=== PATIENT | female | born 1935 | race Caucasian/White ===

== ENCOUNTER 2017-08-25 04:01 | Inpatient (IN) | payer MEDICARE ==
[2017-08-25] MEDS ORDERED: NS 0.9% 1000 ML* 1,000 ML IV ONE (04:25)
--- NOTE | 2017-08-25 04:32 | ED ---
Nausea/Vomiting/Diarrhea HPI - HPI Summary HPI Summary: 81 yrs old female with PMHX of metastatic lung CA,CAD S/P Multiple PCI'S. last one was on June. Pt still on Chemotherapy. Pt brought to the ED by her daughter because of N/V, weakness and decrease PO intake. Pt had the symptoms for the last 2 days. No fever,no diarrhea,no abdominal pain. - History of Current Complaint Chief Complaint: EDNauseaVomitDiarrh Stated Complaint: N/V, generalized weaknerss. Time Seen by Provider: 08/25/17 04:10 Hx Obtained From: Patient, Family/Marker Hand ?: No Onset/Duration: Gradual Onset - 2 days ago. Timing: Constant Severity Initially: Moderate Severity Currently: Moderate Pain Intensity: 0 Pain Scale Used: 0-10 Numeric - zero. Nausea/Vomiting Presence: Nauseated Vomiting Frequency: Every 3-4 hours Vomiting Characteristics: Nonbilious Diarrhea Presence: No - Risk Factors Influenza Risk Factors: Age 65 y/o or Older - Lung CA on chemotherapy. - Allergies/Home Medications Allergies/Adverse Reactions: Allergies Allergy/AdvReac Type Severity Reaction Status Date / Time No Known Allergies Allergy Verified 08/19/17 13:58 Home Medications: Home Medications oxyCODONE SR TAB(*) [Oxycontin 10 mg (*)] 10 mg PO BID 08/25/17 [History Confirmed 08/25/17] oxyCODONE TAB* [Roxycodone TAB 5 mg*] 5 mg PO Q4H PRN 08/25/17 [History Confirmed 08/25/17] PMH/Surg Hx/FS Hx/Imm Hx Endocrine/Hematology History: Reports: Hx Anticoagulant Therapy, Hx Anemia Denies: Hx Blood Disorders, Hx Blood Transfusions, Hx Bone Marrow Disease, Hx Diabetes, Hx Systemic Lupus Erythematosus, Hx Sickle Cell Disease, Hx Thyroid Disease, Hx Unexplained Bleeding Cardiovascular History: Reports: Hx Coronary Artery Disease, Hx Hypercholesterolemia, Hx Hypertension, Other Cardiovascular Problems/Disorders - STENTS x6 Denies: Hx Aneurysm, Hx Angina, Hx Angioplasty, Hx Auto Implanted Cardiovert Defib, Hx Cardiac Arrest, Hx Cardiomegaly, Hx Congenital Heart Disease, Hx Congestive Heart Failure, Hx Deep Vein Thrombosis, Hx Embolism, Hx Hypotension, Hx Pacemaker/ICD, Hx Peripheral Vascular Disease, Hx Rheumatic Fever, Hx Syncope , Hx Valvular Heart Disease Respiratory History: Reports: Hx Lung Cancer - Diagnosed 05/2017 Denies: Hx Asthma, Hx Chronic Bronchitis, Hx Chronic Obstructive Pulmonary Disease (COPD), Hx Cystic Fibrosis, Hx Pleural Effusion, Hx Pneumonia, Hx Pulmonary Edema, Hx Pulmonary Embolism, Hx Seasonal Allergies, Hx Sleep Apnea GI History: Reports: Hx Diverticulosis - 1991, Hx Gastroesophageal Reflux Disease - 03/2017 Denies: Hx Cirrhosis, Hx Crohn's Disease, Hx Gall Bladder Disease, Hx Gastrointestinal Bleed, Hx Hiatal Hernia, Hx Irritable Bowel, Hx Jaundice, Hx Obstructive Bowel, Hx Ileostomy, Hx Pyloric Stenosis, Hx Ulcer, Other GI Disorders History: Reports: Hx Renal Disease - INTERSTITIAL NEPHRITIS Denies: Hx Acute Renal Failure, Hx Benign Prostatic Hyperplasia, Hx Chronic Renal Failure, Hx Dialysis, Hx Kidney Infection, Hx Kidney Stones, Other Problems/Disorders Musculoskeletal History: Reports: Hx Arthritis - BACK, Hx Back Problems - Arthritis, Hx Osteoporosis Denies: Hx Bursitis, Hx Congenital Bone Abnormalities, Hx Fibromyalgia, Hx Gout, Hx Orthopedic Injury, Hx Scoliosis, Hx Tendonitis Sensory History: Reports: Hx Cataracts, Hx Contacts or Glasses - GLASSES INST GIVEN, Hx Glaucoma, Hx Macular Degeneration, Other Sensory Impairments - EYE SURGERY Denies: Hx Eye Injury, Hx Eye Prosthesis, Hx Legally Blind, Hx Vision Problem , Hx Deafness, Hx Hearing Aid, Hx Hearing Problem Opthamlomology History: Reports: Hx Cataracts, Hx Contacts or Glasses - GLASSES INST GIVEN, Hx Glaucoma, Hx Macular Degeneration, Other Sensory Impairments - EYE SURGERY Denies: Hx Eye Injury, Hx Eye Prosthesis, Hx Legally Blind, Hx Vision Problem Neurological History: Denies: Hx Dementia, Hx Developmental Delay, Hx Headaches, Hx Migraine, Hx Nerve Disease, Hx Seizures, Hx Spinal Cord Injury, Hx Transient Ischemic Attacks (TIA), Other Neuro Impairments/Disorders Psychiatric History: Reports: Hx Anxiety Denies: Hx Attention Deficit Hyperactivity Disorder, Hx Eating Disorder, Hx Depression, Hx Panic Disorder, Hx Post Traumatic Stress Disorder, Hx Inpatient Treatment, Hx Community Mental Health Tx, Hx Schizophrenia, Hx Bipolar Disorder , Hx Suicide Attempt, Hx of Violent Episodes Against Others, Hx Substance Abuse , Other Psychiatric Issues/Disorders - Cancer History Cancer Type, Location and Year: SHORT CELL LUNG CARCINOMA Hx Chemotherapy: No Hx Radiation Therapy: No Hx Palliative Cancer Treatment: No - Surgical History Surgery Procedure, Year, and Place: 1992 D/C MAXIMUS. 2002 CARPAL TUNNEL R [facility]. 2012 HYSTERECTOMY COM GEN. 2006 CATARACT [facility] & [facility] 2002 - TOTAL 6 CARDIAC STENTS - BILLY. Lt eye drain place due to pressure(PREV CLEARED). PORT FOR CHEMO Hx Anesthesia Reactions: No - Immunization History Date of Tetanus Vaccine: 2010 Date of Influenza Vaccine: 06/2013 Infectious Disease History: No Infectious Disease History: Reports: Hx Shingles - 2002 Denies: Hx Clostridium Difficile, Hx Hepatitis, Hx Human Immunodeficiency Virus (HIV), Hx Tuberculosis, Traveled Outside the [place] in Last 30 Days - Family History Known Family History: Positive: Cardiac Disease - Social History Alcohol Use: None Substance Use Type: Reports: None Smoking Status (MU): Former Smoker Type: Cigarettes Have You Smoked in the Last Year: No Review of Systems Positive: Fatigue. Negative: Fever, Chills Eyes: Negative Negative: Photophobia, Blurred Vision ENT: Negative Negative: Epistaxis, Dental Pain, Sore Throat Cardiovascular: Negative Negative: Palpitations, Chest Pain Respiratory: Negative Negative: Shortness Of Breath, Cough Positive: Vomiting, Nausea. Negative: Abdominal Pain, Diarrhea Genitourinary: Negative Positive: no symptoms reported Skin: Negative Negative: Rash, Bruising Neurological: Negative Negative: Headache, Weakness, Paresthesia, Numbness All Other Systems Reviewed And Are Negative: Yes Physical Exam - Summary Physical Exam Summary: Elderly fragile ill looking female. Triage Information Reviewed: Yes Vital Signs On Initial Exam: Initial Vitals Temp Pulse Resp BP Pulse Ox 36.9 C 74 20 131/69 96 08/25/17 04:16 08/25/17 04:16 08/25/17 04:16 08/25/17 04:16 08/25/17 04:16 Vital Signs Reviewed: Yes Appearance: Positive: Ill-Appearing Skin: Positive: Warm, Dry Head/Face: Positive: Normal Head/Face Inspection Eyes: Positive: Normal, EOMI, MASHA ENT: Positive: Normal ENT inspection, Hearing grossly normal, Pharynx normal Neck: Positive: Supple, Nontender, No Lymphadenopathy Respiratory/Lung Sounds: Positive: Decreased Breath Sounds. Negative: Rales, Rhonchi, Subcutaneous Emphysema Cardiovascular: Positive: RRR, Pulses are Symmetrical in both Upper and Lower Extremities. Negative: Murmur, Rub Abdomen Description: Positive: Nontender, No Organomegaly, Soft. Negative: CVA Tenderness (L), Distended, Guarding Bowel Sounds: Positive: Present Musculoskeletal: Positive: Normal Neurological: Positive: Normal Diagnostics - Vital Signs Vital Signs Temp Pulse Resp BP Pulse Ox 08/25/17 04:16 36.9 C 74 20 131/69 96 - Laboratory Result Diagrams: 08/25/17 04:48 08/25/17 04:48 Lab Statement: Any lab studies that have been ordered have been reviewed, and results considered in the medical decision making process. Naus/Vom/Diarrhea Course/Dx - Course Course Of Treatment: Time:0549. I reviewed lab results with pt and her daughter. Pt was able to drink water and keep it down in the ED. Pt complains of pain, Treated with Zofran and Morphine. Case discussed with [facility] hospitalist. Dr Koroma. Pt will be admitted to her service. - Differential Dx/Diagnosis Provider Diagnoses: Generalized weakness. Dehydration. Nausea and vomiting. Discharge - Discharge Plan Condition: Fair Disposition: ADMITTED TO [facility] Referrals: Lamar Markham MD [Primary Care Provider] -
[2017-08-25 04:59] LABS: Hematocrit 26 % (35-47); Hemoglobin 8.6 g/dl (12.0-16.0); Mean Corpuscular HGB Conc 34 g/dl (31-36); Mean Corpuscular Hemoglobin 32 pg (27-31); Mean Corpuscular Volume 95 fL (80-97); Mean Platelet Volume 9 um3 (7.4-10.4); Red Cell Distribution Width 16 % (10.5-15); White Blood Count 5.3 10^3/ul (3.5-10.8)
[2017-08-25 05:13] LABS: Albumin 3.4 g/dL (3.2-5.2); BUN/Creatinine Ratio 22.2 (8-20); Calcium 8.9 mg/dL (8.6-10.3); EGFR Non-African American 30.3 (>60); Globulin 2.9 g/dL (2-4); Total Bilirubin 0.4 mg/dL (0.2-1.0); Total Protein 6.3 g/dL (6.4-8.9)
[2017-08-25] MEDS ORDERED: Ondansetron INJ* 2 MG/ML VIAL IV ONE (05:39)
[2017-08-25] MEDS ORDERED: Morphine INJ* 4 MG/ML 1 ML CARPUJECT IV ONE (05:44)
[2017-08-25 09:07] LABS: Urine Bilirubin Negative (Negative); Urine Glucose Negative (Negative); Urine Nitrite Negative (Negative)
[2017-08-25] MEDS ORDERED: Loperamide CAP* 2 MG PO PRN (09:36)
[2017-08-25] MEDS ORDERED: Nitroglycerin TAB 0.4 MG* 0.4 MG TAB SL PRN (09:40)
[2017-08-25] MEDS ORDERED: Ondansetron INJ* 2 MG/ML VIAL IV PRN (09:48)
[2017-08-25] MEDS: oxyCODONE TAB* 5 MG TAB PO PRN (10:13)
[2017-08-25] MEDS: Dronabinol CAP* 2.5 MG PO SCH ×2 (12:52→16:19)
[2017-08-25] MEDS ORDERED: Lidocaine 2.5%/Prilocain 2.5%* 5 GM TUBE TOPICAL SCH (13:00)
[2017-08-25] MEDS: oxyCODONE SR TAB(*) 10 MG TAB.SR PO SCH ×2 (13:38→20:45)
[2017-08-25] MEDS: Heparin VIAL(*) 5000 UNITS/ML VIAL (FIVE THOUSAND) SUBCUT SCH ×2 (13:38→20:45)
[2017-08-25] MEDS: NS 0.9% 1000 ML* 1,000 ML IV SCH (14:06)
[2017-08-25] MEDS: Morphine INJ* 4 MG/ML 1 ML CARPUJECT IV PRN (16:19)
[2017-08-25] MEDS: Atorvastatin* 80 MG TAB PO SCH (17:52)
[2017-08-25] MEDS ORDERED: Sertraline* 50 MG TAB PO SCH (18:00)
[2017-08-25] MEDS: Metoprolol Tartrate TAB* 50 mg PO SCH (20:45)
[2017-08-25] MEDS: Gabapentin CAP(*) 100 MG PO SCH (20:45)
[2017-08-25] MEDS: Ticagrelor* 90 MG TAB PO SCH (20:45)
[2017-08-25] MEDS: PTO:Dorzolamide 2% OPTH (NF) 10 ML BTL BOTH EYES SCH (20:46)
[2017-08-25] MEDS: PTO:Brimonidine P 0.1%(NF) 1 DROP BTL BOTH EYES SCH (20:46)
[2017-08-26] MEDS: NS 0.9% 1000 ML* 1,000 ML IV SCH ×2 (02:37→15:27)
[2017-08-26] MEDS: Dronabinol CAP* 2.5 MG PO SCH ×3 (05:48→16:52)
[2017-08-26] MEDS: Heparin VIAL(*) 5000 UNITS/ML VIAL (FIVE THOUSAND) SUBCUT SCH ×3 (05:48→21:30)
[2017-08-26] MEDS: oxyCODONE SR TAB(*) 10 MG TAB.SR PO SCH ×3 (05:48→21:29)
[2017-08-26 06:07] LABS: Hematocrit 26 % (35-47); Hemoglobin 8.5 g/dl (12.0-16.0); Mean Corpuscular HGB Conc 33 g/dl (31-36); Mean Corpuscular Hemoglobin 32 pg (27-31); Mean Corpuscular Volume 96 fL (80-97); Mean Platelet Volume 9 um3 (7.4-10.4); Red Blood Count 2.69 10^6/ul (4.0-5.4); Red Cell Distribution Width 16 % (10.5-15); White Blood Count 7.7 10^3/ul (3.5-10.8)
[2017-08-26 06:08] LABS: Add Diff/Slide Review? Slide Review Added; Comments Flag Yes
[2017-08-26 06:34] LABS: Albumin 3.4 g/dL (3.2-5.2); BUN/Creatinine Ratio 15.7 (8-20); Calcium 8.8 mg/dL (8.6-10.3); EGFR African American 46.2 (>60); EGFR Non-African American 35.9 (>60); Globulin 2.6 g/dL (2-4); Potassium 4.2 mmol/L (3.5-5.0); Total Bilirubin 0.3 mg/dL (0.2-1.0)
[2017-08-26] MEDS: oxyCODONE TAB* 5 MG TAB PO PRN (06:36)
[2017-08-26] MEDS: PTO:Dorzolamide 2% OPTH (NF) 10 ML BTL BOTH EYES SCH ×2 (07:35→21:32)
[2017-08-26] MEDS ORDERED: Latanoprost 0.005%* 2.5 ml BTL LEFT EYE SCH (09:00)
[2017-08-26] MEDS: Gabapentin CAP(*) 100 MG PO SCH ×2 (09:30→21:27)
[2017-08-26] MEDS: Ticagrelor* 90 MG TAB PO SCH ×2 (09:30→21:29)
[2017-08-26] MEDS: Metoprolol Tartrate TAB* 50 mg PO SCH ×2 (09:30→21:28)
[2017-08-26] MEDS: PTO:Brimonidine P 0.1%(NF) 1 DROP BTL BOTH EYES SCH ×2 (09:31→21:32)
[2017-08-26] MEDS: Aspirin Low Dose CHEW TAB* 81 MG PO SCH (09:31)
--- NOTE | 2017-08-26 09:34 | PN ---
Progress Note - Progress Note Date of Service: 08/26/17 SOAP: Subjective: []Continues to do poorly. Weak, not eating well. Vision continues to worsen. Diarrhea is improved. Aspirin (Aspirin Low Dose Tab*) 81 mg PO DAILY [facility] Atorvastatin Calcium (Lipitor*) 80 mg PO 1700 [facility] Last Admin: 08/25/17 17:52 Dose: 80 mg Brimonidine Tartrate (Alphagan P 0.1% (Nf)) 1 drop BOTH EYES BID [facility] Last Admin: 08/25/17 20:46 Dose: 1 drop Dorzolamide HCl (Trusopt 2% Opth (Nf)) 1 drop BOTH EYES BID [facility] PRN Reason: Protocol Last Admin: 08/26/17 07:35 Dose: 1 drop Dronabinol (Marinol Cap*) 2.5 mg PO AC [facility] Last Admin: 08/26/17 05:48 Dose: 2.5 mg Gabapentin (Neurontin Cap(*)) 100 mg PO BID [facility] Last Admin: 08/25/17 20:45 Dose: 100 mg Heparin Sodium (Porcine) (Heparin Flush Port (Ivad)) 5 ml FLUSH DAILY [facility] PRN Reason: Protocol Last Admin: 08/26/17 07:28 Dose: Not Given Heparin Sodium (Porcine) (Heparin Vial(*)) 5,000 units SUBCUT Q8HR [facility] Last Admin: 08/26/17 05:48 Dose: 5,000 units Sodium Chloride (Ns 0.9% 1000 Ml*) 1,000 mls @ 75 mls/hr IV PER RATE [facility] Last Admin: 08/26/17 02:37 Dose: 75 mls/hr Latanoprost (Xalatan 0.005%*) 1 drop LEFT EYE DAILY [facility] PRN Reason: Protocol Last Admin: 08/26/17 07:34 Dose: Not Given Loperamide HCl (Imodium Cap*) 2 mg PO .SEE DIRECTIONS PRN PRN Reason: DIARRHEA Metoprolol Tartrate (Lopressor Tab*) 50 mg PO BID [facility] Last Admin: 08/25/17 20:45 Dose: 50 mg Morphine Sulfate (Morphine Inj (Syringe)*) 4 mg IV Q4H PRN PRN Reason: Pain, severe Last Admin: 08/25/17 16:19 Dose: 4 mg Nitroglycerin (Nitroglycerin Tab 0.4 Mg*) 0.4 mg SL Q5M PRN PRN Reason: ANGINA Ondansetron HCl (Zofran Inj*) 4 mg IV Q4H PRN PRN Reason: NAUSEA/VOMITING Oxycodone HCl (Oxycontin(*)) 10 mg PO Q8HR [facility] Last Admin: 08/26/17 05:48 Dose: 10 mg Oxycodone HCl (Roxycodone Tab*) 5 mg PO Q4H PRN PRN Reason: PAIN Last Admin: 08/26/17 06:36 Dose: 5 mg Sertraline HCl (Zoloft*) 50 mg PO QPM [facility] Last Admin: 08/25/17 17:52 Dose: 50 mg Ticagrelor (Brilinta*) 90 mg PO BID [facility] Last Admin: 08/25/17 20:45 Dose: 90 mg Objective: [] Vital Signs Temp Pulse Resp BP Pulse Ox 98.0 F 67 18 147/67 97 08/26/17 03:24 08/26/17 03:24 08/26/17 09:23 08/26/17 03:24 08/26/17 03:24 HEENT: Mucosa moist, no thrush. No JVD CTA RRR S1S2 Neuro - oriented and conversing, vision very poor and not orienting visually. Assessment: []81 year old on second line chemotherapy for small cell lung cancer after non response to Carboplatin and Etoposide first line. She is not tolerating therapy well with progressive weakness, loss of vision through progression of macular degeneration. Plan: []1. Weakness. PT evaluation today and will tranfuse 1 U PRBC. Encourage eating. 2. Insomnia, Ambien 10 mg po qhs prn 3. Discussed cost of therapy and poor QOL. Chemotherpy is more harm then good at this time. Discussed hospice on discharge with goal of patient staying home. 4. Loss of vision. Follow up ophthalmology on discharge, question of progressive macular degeneration or alternative cause.
[2017-08-26] MEDS ORDERED: Zolpidem TAB* 10 MG PO PRN (09:36)
[2017-08-26] MEDS ORDERED: Docusate CAP* 100 MG PO PRN (10:52)
[2017-08-26] MEDS ORDERED: Senna TAB PO PRN (10:52)
[2017-08-26] MEDS: Lidocaine PATCH 5%* 1 PATCH TRANSDERM SCH (11:50)
[2017-08-26] MEDS: Atorvastatin* 80 MG TAB PO SCH (16:52)
[2017-08-26] MEDS: Sertraline* 100 MG TAB PO SCH (16:52)
--- NOTE | 2017-08-26 19:49 | CONS ---
CC: Lamar Markham MD * PALLIATIVE CARE CONSULTATION REPORT: DATE OF CONSULT: 08/26/17 PRIMARY CARE PHYSICIAN: Lamar Markham MD REFERRING PROVIDER FOR CONSULT: Azucena Grace NP HOSPITAL COURSE: This is an 81-year-old female with a past medical history of small cell lung cancer, stage IV, who presented to the emergency room on , for nausea, vomiting, weakness, and decreased p.o. intake. The patient was admitted by the oncology service. She was getting chemotherapy earlier this month and then she began having vision changes with double vision and decreased vision. She had an MRI that was negative but she continued with progressive weakness, decreased appetite, not doing well. She came in with nausea and as mentioned severe diarrhea. The patient was admitted to the hospital for IV fluids and pain control and symptom control. Oncology spoke with the patient and the daughter at length regarding discontinuing chemotherapy and referring for hospice, as it seems that chemotherapy has become more detrimental than it is beneficial for her at this point. I spoke with the patient and one of the daughters who agree that treatment is no longer an option and that she is having issues with her vision and nausea. Her diarrhea has subsided and now she feels she is constipated. She does have a lot of anxiety, as she used to be very active and now she only can sit around. She has been on the same Zoloft dose for several years but the patient and her family feel that she could benefit from a higher dose. She still has lot of weakness in her knees and a lot of back pain, but she is hesitant to increase her opioid regimen for concern of oversedation. The patient lives in [facility]. She has 4 daughters who live within walking distance of her, who are in to visit with her daily. They are planning to provide 24-hour care between them to make sure that she can be home with hospice involvement. Otherwise, remaining review of systems is negative. PAST MEDICAL HISTORY: 1. Stage IV small cell lung carcinoma, PET scan showed multiple bone lesions in spine, sternum, ribs, multiple liver lesions, and several lung lesions, and a large mediastinal node. She is status post chemotherapy. 2. History of compression fracture of T12. 3. Arthritis. 4. CAD, status post PCI. 5. CKD, followed by Dr. Esqueda. 6. Depression. 7. Hyperlipidemia. 8. Macular degeneration. 9. Osteoarthritis. 10. Peripheral neuropathy. PAST SURGICAL HISTORY: Carpal tunnel surgery, cataract removal, glaucoma, and hysterectomy. INPATIENT MEDICATIONS: 1. Aspirin 81 mg p.o. daily. 2. Atorvastatin 80 mg daily. 3. Brimonidine 1 drop both eyes b.i.d. 4. Dorzolamide 1 drop both eyes b.i.d. 5. Marinol 2.5 mg p.o. a.c. 6. Gabapentin 100 mg p.o. b.i.d. 7. Heparin 5000 units subcu t.i.d. 8. Latanoprost 0.005% 1 drop to left eye daily. 9. Loperamide as directed. 10. Metoprolol tartrate 50 mg p.o. b.i.d. 11. Morphine 4 mg IV q.4 hours as needed. 12. Nitro 0.4 mg sublingual as needed. 13. Normal saline 75 cc an hour. 14. Zofran 4 mg IV q.4 hours as needed. 15. Oxycodone SR 10 mg p.o. q.8 hours. 16. Oxycodone 5 mg q.4 hours as needed. 17. Sertraline 50 mg p.o. daily. 18. Brilinta 90 mg p.o. b.i.d. 19. Ambien 10 mg at bedtime. ALLERGIES: No known drug allergies. FAMILY HISTORY: Reviewed and noncontributory. SOCIAL HISTORY: As mentioned, lives alone on [address]. Her 4 daughters all live within close proximity to her and will provide 24-hour care for her. She was ambulating independently with a cane, but now she will be going home with a walker. She quit smoking 50 years ago, at that point she was smoking a pack per day for 15 years. No alcohol or illicit drug use. Code status is DNR/ DNI. Healthcare proxies are her daughters. REVIEW OF SYSTEMS: A 14-point review of systems as mentioned in HPI, otherwise negative. PHYSICAL EXAM: Vitals: Temp 98.1, pulse rate 67, respiratory rate 15, oxygen saturation 95% on room air, blood pressure 128/70. General: In no acute distress, resting comfortably with her daughter at the bedside. HEENT: The patient with alopecia, pale appearing. Pupils equal and reactive. Oropharynx: Mucous membranes are moist. Neck: Supple. No adenopathy. Respiratory: Diminished breath sounds. No wheezing, rhonchi, or rales. Cardiac: Regular rate and rhythm. No murmurs, rubs, or gallops. Abdomen: Soft, nontender, nondistended. Extremities: No clubbing, cyanosis, or edema. +1 DPs. Neurologic : Alert and oriented x3 with no focal neurologic deficits. LABORATORY DATA: White count 7.7, hemoglobin 8.5, hematocrit 26. Sodium 136, potassium 4.2, chloride 108, bicarb 21, BUN 22, creatinine 1.4. ASSESSMENT AND PLAN: This is an 81-year-old female with past medical history of stage IV small cell lung cancer, who has not been tolerating chemotherapy and has decided to go home with hospice and being cared by her 4 daughters. I did discuss with her increasing her Zoloft dose, which they are agreeable to. We will increase it to 100 mg. We will also start the bowel regimen as she states she has been constipated for the past 2 days since the diarrhea stopped. We are also going to try Lidoderm patch as she does not want to increase any opioid medications. We will have our social work nurse come and talk to her regarding the hospice services within [facility]. Thank you for this consultation. TIME SPENT: Greater than 60 minutes spent doing the consultation, more than half the time spent in direct patient contact. [id number]/[facility] #: [id number] MTDD
[2017-08-26] MEDS ORDERED: Lidocaine Patch REMOVE* 1 NOTE MISC SCH (21:00)
[2017-08-26] MEDS: Latanoprost 0.005%* 2.5 ml BTL LEFT EYE SCH (21:31)
[2017-08-27] MEDS: NS 0.9% 1000 ML* 1,000 ML IV SCH (05:16)
[2017-08-27] MEDS: oxyCODONE SR TAB(*) 10 MG TAB.SR PO SCH ×3 (06:15→20:38)
[2017-08-27] MEDS: Heparin VIAL(*) 5000 UNITS/ML VIAL (FIVE THOUSAND) SUBCUT SCH ×3 (06:15→20:40)
[2017-08-27 06:26] LABS: Hematocrit 27 % (35-47); Hemoglobin 8.8 g/dl (12.0-16.0); Mean Corpuscular HGB Conc 33 g/dl (31-36); Mean Corpuscular Hemoglobin 31 pg (27-31); Mean Corpuscular Volume 94 fL (80-97); Mean Platelet Volume 8 um3 (7.4-10.4); Red Blood Count 2.84 10^6/ul (4.0-5.4); Red Cell Distribution Width 17 % (10.5-15); White Blood Count 7.3 10^3/ul (3.5-10.8)
[2017-08-27 06:33] LABS: Comments Flag Yes
[2017-08-27 06:34] LABS: Add Diff/Slide Review? Slide Review Added
[2017-08-27 06:41] LABS: Albumin 3.1 g/dL (3.2-5.2); BUN/Creatinine Ratio 14.8 (8-20); Calcium 8.4 mg/dL (8.6-10.3); EGFR Non-African American 45.1 (>60); Globulin 2.6 g/dL (2-4); Magnesium 1.4 mg/dL (1.9-2.7); Total Bilirubin 0.3 mg/dL (0.2-1.0); Total Protein 5.7 g/dL (6.4-8.9)
[2017-08-27] MEDS: Dronabinol CAP* 2.5 MG PO SCH ×3 (09:21→17:36)
[2017-08-27] MEDS: Ticagrelor* 90 MG TAB PO SCH (09:23)
[2017-08-27] MEDS: Gabapentin CAP(*) 100 MG PO SCH ×2 (09:23→20:39)
[2017-08-27] MEDS: Aspirin Low Dose CHEW TAB* 81 MG PO SCH (09:24)
[2017-08-27] MEDS: Metoprolol Tartrate TAB* 50 mg PO SCH ×2 (09:25→20:39)
[2017-08-27] MEDS: Morphine INJ* 4 MG/ML 1 ML CARPUJECT IV PRN (09:38)
[2017-08-27] MEDS: Lidocaine PATCH 5%* 1 PATCH TRANSDERM SCH (09:39)
[2017-08-27] MEDS ORDERED: Morphine INJ* 4 MG/ML 1 ML CARPUJECT IV PRN (10:08)
--- NOTE | 2017-08-27 10:16 | PN ---
Progress Note - Progress Note Date of Service: 08/27/17 SOAP: Subjective: []Did well yesterday and was active. BM overnight. This am increaed pain and used PRN medication. Had some confusion overnight. No fevers. Aspirin (Aspirin Low Dose Tab*) 81 mg PO DAILY [facility] Last Admin: 08/27/17 09:24 Dose: 81 mg Brimonidine Tartrate (Alphagan P 0.1% (Nf)) 1 drop BOTH EYES BID [facility] Last Admin: 08/26/17 21:32 Dose: 1 drop Docusate Sodium (Colace Cap*) 100 mg PO BID PRN PRN Reason: CONSTIPATION Last Admin: 08/26/17 21:28 Dose: 100 mg Dorzolamide HCl (Trusopt 2% Opth (Nf)) 1 drop BOTH EYES BID [facility] PRN Reason: Protocol Last Admin: 08/26/17 21:32 Dose: 1 drop Dronabinol (Marinol Cap*) 2.5 mg PO AC [facility] Last Admin: 08/27/17 09:21 Dose: 2.5 mg Gabapentin (Neurontin Cap(*)) 100 mg PO BID [facility] Last Admin: 08/27/17 09:23 Dose: 100 mg Heparin Sodium (Porcine) (Heparin Flush Port (Ivad)) 5 ml FLUSH DAILY [facility] PRN Reason: Protocol Last Admin: 08/27/17 09:24 Dose: Not Given Heparin Sodium (Porcine) (Heparin Vial(*)) 5,000 units SUBCUT Q8HR [facility] Last Admin: 08/27/17 06:15 Dose: 5,000 units Latanoprost (Xalatan 0.005%*) 1 drop LEFT EYE BEDTIME [facility] PRN Reason: Protocol Last Admin: 08/26/17 21:31 Dose: 1 drop Metoprolol Tartrate (Lopressor Tab*) 50 mg PO BID [facility] Last Admin: 08/27/17 09:25 Dose: 50 mg Morphine Sulfate (Morphine Inj (Syringe)*) 4 mg IV Q4H PRN PRN Reason: Pain, severe Nitroglycerin (Nitroglycerin Tab 0.4 Mg*) 0.4 mg SL Q5M PRN PRN Reason: ANGINA Ondansetron HCl (Zofran Inj*) 4 mg IV Q4H PRN PRN Reason: NAUSEA/VOMITING Last Admin: 08/27/17 09:38 Dose: 4 mg Oxycodone HCl (Oxycontin(*)) 10 mg PO Q8HR [facility] Last Admin: 08/27/17 06:15 Dose: 10 mg Oxycodone HCl (Roxycodone Tab*) 5 mg PO Q4H PRN PRN Reason: PAIN Last Admin: 08/26/17 06:36 Dose: 5 mg Senna (Senokot Tab*) 1 tab PO BEDTIME PRN PRN Reason: CONSTIPATION Last Admin: 08/26/17 21:30 Dose: 1 tab Sertraline HCl (Zoloft*) 100 mg PO QPM [facility] Last Admin: 08/26/17 16:52 Dose: 100 mg Zolpidem Tartrate (Ambien Tab*) 10 mg PO BEDTIME PRN PRN Reason: INSOMNIA Last Admin: 08/26/17 21:29 Dose: 10 mg Objective: [] Vital Signs Temp Pulse Resp BP Pulse Ox 98.1 F 68 20 146/59 95 08/27/17 03:25 08/27/17 03:25 08/27/17 09:38 08/27/17 03:25 08/27/17 03:25 HEENT: Mucosa moist, no thrush. No JVD CTA RRR S1S2 Neuro - More fatigued, was able to answer questions, oriented to place. vision very poor and not orienting visually. Assessment: []81 year old on second line chemotherapy for small cell lung cancer after non response to Carboplatin and Etoposide first line. She is not tolerating therapy well with progressive weakness, loss of vision through progression of macular degeneration. [place] [facility] [place], daughters will be primary care givers. Plan: []1. Weakness. PT and encurage activit. 2. Pain. Will continue current Oxycodone for now and follow. She has not wanted to increase long acting pain medication. 3. Discussed palliative care with family. Will work on psychosocial support on Tuesday. D/C early next week 4. Simplification of medication, stop cardiac medications. 5. Lidocaine patch did not work, will d/c
[2017-08-27] MEDS: PTO:Brimonidine P 0.1%(NF) 1 DROP BTL BOTH EYES SCH ×2 (13:14→20:40)
[2017-08-27] MEDS: PTO:Dorzolamide 2% OPTH (NF) 10 ML BTL BOTH EYES SCH ×2 (13:14→20:38)
[2017-08-27] MEDS ORDERED: Morphine INJ* 2 MG/ML 1 ML SYRINGE (TWO MG - NEW SYRINGE VERSION) IV PRN (17:01)
[2017-08-27] MEDS: Sertraline* 100 MG TAB PO SCH (17:36)
[2017-08-27] MEDS: Latanoprost 0.005%* 2.5 ml BTL LEFT EYE SCH (20:36)
[2017-08-28] MEDS: Heparin VIAL(*) 5000 UNITS/ML VIAL (FIVE THOUSAND) SUBCUT SCH ×3 (05:42→21:35)
[2017-08-28] MEDS: oxyCODONE SR TAB(*) 10 MG TAB.SR PO SCH ×3 (05:42→21:30)
[2017-08-28] MEDS: Gabapentin CAP(*) 100 MG PO SCH ×2 (09:21→21:31)
[2017-08-28] MEDS: Metoprolol Tartrate TAB* 50 mg PO SCH ×2 (09:22→21:34)
[2017-08-28] MEDS: Aspirin Low Dose CHEW TAB* 81 MG PO SCH (09:22)
[2017-08-28] MEDS: Dronabinol CAP* 2.5 MG PO SCH ×3 (09:22→18:02)
[2017-08-28] MEDS: oxyCODONE TAB* 5 MG TAB PO PRN (09:23)
[2017-08-28] MEDS: PTO:Dorzolamide 2% OPTH (NF) 10 ML BTL BOTH EYES SCH ×2 (09:24→21:27)
[2017-08-28] MEDS: PTO:Brimonidine P 0.1%(NF) 1 DROP BTL BOTH EYES SCH ×2 (09:24→21:29)
[2017-08-28] MEDS ORDERED: Loperamide CAP* 2 MG PO PRN (10:11)
--- NOTE | 2017-08-28 17:47 | PN ---
Subjective Date of Service: 08/28/17 Interval History: . rounded on patient earlier today for oncology team patient requested imodium (ordered) pain generally well controlled. daughter present. Family History: Unchanged from Admission Social History: Unchanged from Admission Past Medical History: Unchanged from Admission Objective Active Medications: . Aspirin (Aspirin Low Dose Tab*) 81 mg PO DAILY [facility] Last Admin: 08/28/17 09:22 Dose: 81 mg Brimonidine Tartrate (Alphagan P 0.1% (Nf)) 1 drop BOTH EYES BID [facility] Last Admin: 08/28/17 09:24 Dose: 1 drop Docusate Sodium (Colace Cap*) 100 mg PO BID PRN PRN Reason: CONSTIPATION Last Admin: 08/26/17 21:28 Dose: 100 mg Dorzolamide HCl (Trusopt 2% Opth (Nf)) 1 drop BOTH EYES BID [facility] PRN Reason: Protocol Last Admin: 08/28/17 09:24 Dose: 1 drop Dronabinol (Marinol Cap*) 2.5 mg PO AC [facility] Last Admin: 08/28/17 14:05 Dose: 2.5 mg Gabapentin (Neurontin Cap(*)) 100 mg PO BID [facility] Last Admin: 08/28/17 09:21 Dose: 100 mg Heparin Sodium (Porcine) (Heparin Flush Port (Ivad)) 5 ml FLUSH DAILY [facility] PRN Reason: Protocol Last Admin: 08/28/17 09:18 Dose: 5 ml Heparin Sodium (Porcine) (Heparin Vial(*)) 5,000 units SUBCUT Q8HR [facility] Last Admin: 08/28/17 14:05 Dose: 5,000 units Latanoprost (Xalatan 0.005%*) 1 drop LEFT EYE BEDTIME [facility] PRN Reason: Protocol Last Admin: 08/27/17 20:36 Dose: 1 drop Loperamide HCl (Imodium Cap*) 2 mg PO .SEE DIRECTIONS PRN PRN Reason: DIARRHEA Metoprolol Tartrate (Lopressor Tab*) 50 mg PO BID [facility] Last Admin: 08/28/17 09:22 Dose: 50 mg Morphine Sulfate (Morphine Inj (Syringe)*) 2 mg IV Q2H PRN PRN Reason: PAIN Nitroglycerin (Nitroglycerin Tab 0.4 Mg*) 0.4 mg SL Q5M PRN PRN Reason: ANGINA Ondansetron HCl (Zofran Inj*) 4 mg IV Q4H PRN PRN Reason: NAUSEA/VOMITING Last Admin: 08/27/17 09:38 Dose: 4 mg Oxycodone HCl (Oxycontin(*)) 10 mg PO Q8HR [facility] Last Admin: 08/28/17 14:05 Dose: 10 mg Oxycodone HCl (Roxycodone Tab*) 5 mg PO Q4H PRN PRN Reason: PAIN Last Admin: 08/28/17 09:23 Dose: 5 mg Senna (Senokot Tab*) 1 tab PO BEDTIME PRN PRN Reason: CONSTIPATION Last Admin: 08/26/17 21:30 Dose: 1 tab Sertraline HCl (Zoloft*) 100 mg PO QPM [facility] Last Admin: 08/27/17 17:36 Dose: 100 mg Zolpidem Tartrate (Ambien Tab*) 10 mg PO BEDTIME PRN PRN Reason: INSOMNIA Last Admin: 08/26/17 21:29 Dose: 10 mg . Vital Signs - 8 hr 08/28/17 08/28/17 08/28/17 10:59 11:04 14:05 Temperature Pulse Rate 55 Respiratory 16 15 14 Rate Blood Pressure 114/53 (mmHg) O2 Sat by Pulse 98 Oximetry 08/28/17 08/28/17 08/28/17 15:39 15:44 15:45 Temperature 98.2 F Pulse Rate 61 Respiratory 16 16 16 Rate Blood Pressure 112/47 (mmHg) O2 Sat by Pulse 98 Oximetry Oxygen Devices in Use Now: None Appearance: alopecia secondary to chemothrapy. frail, elderly appearing Eyes: No Scleral Icterus Ears/Nose/Mouth/Throat: Clear Oropharnyx Neck: Trachea Midline Respiratory: Symmetrical Chest Expansion and Respiratory Effort Cardiovascular: No Edema Abdominal: NL Sounds; No Tenderness; No Distention Extremities: No Edema Skin: No Rash or Ulcers Neurological: Alert and Oriented x 3 Lines/Tubes/Other Access: Clean, Dry and Intact Peripheral IV Nutrition: Taking PO's Result Diagrams: 08/27/17 06:15 08/27/17 06:15 Microbiology and Other Data: Microbiology 08/26/17 15:26 Transfusion Reaction Culture - Preliminary Blood Bag No Growth Day 2 Transfusion Reaction Gram Stain - Final Assess/Plan/Problems-Billing . Assessment: 81 y.o. female with small cell lung cancer s/p second line chemotherapy for after non response to Carboplatin and Etoposide first line with poor toleration of the second line agents. Now with progressive weakness and loss of vision through progression of macular degeneration. Plan: - Pain control with Oxycodone for now and follow. - Palliative care/hospice enrollment this week. - Off cardiac medications. - Added imodium for loose stools 08/28/17 - Will transition to hospice on discharge. - Daughters will be primary care givers.
[2017-08-28] MEDS: Sertraline* 100 MG TAB PO SCH (18:02)
[2017-08-28] MEDS: Latanoprost 0.005%* 2.5 ml BTL LEFT EYE SCH (21:29)
[2017-08-29] MEDS: Heparin VIAL(*) 5000 UNITS/ML VIAL (FIVE THOUSAND) SUBCUT SCH (06:00)
[2017-08-29] MEDS: oxyCODONE SR TAB(*) 10 MG TAB.SR PO SCH (06:01)
[2017-08-29] MEDS: Gabapentin CAP(*) 100 MG PO SCH (08:26)
[2017-08-29] MEDS: Metoprolol Tartrate TAB* 50 mg PO SCH (08:26)
[2017-08-29] MEDS: Dronabinol CAP* 2.5 MG PO SCH ×2 (08:26→14:18)
[2017-08-29] MEDS: oxyCODONE TAB* 5 MG TAB PO PRN (08:27)
[2017-08-29] MEDS: Aspirin Low Dose CHEW TAB* 81 MG PO SCH (08:27)
[2017-08-29] MEDS: PTO:Brimonidine P 0.1%(NF) 1 DROP BTL BOTH EYES SCH (08:28)
[2017-08-29] MEDS: PTO:Dorzolamide 2% OPTH (NF) 10 ML BTL BOTH EYES SCH (08:28)
[2017-08-29 09:57] VITALS: BP 140/51
--- NOTE | 2017-08-29 10:51 | DS ---
- Discharge Summary Admission Date: 08/25/2017 Discharge Date: 08/29/2017 Discharge Diagnosis: 1. Metastatic Small Cell Lung Cancer: end stage and will transition to hospice once home 2. Weakness: related to above and decline 3. Macular Degeneration: progressive, cont. dops Discharge Medications: 1. Docusate Sodium: 100 mg PO BID PRN Constipation 2. Loperamide 2mg PO PRN diarrhea, mdd 8 tabs 3. Lorazepam 0.5 mg PO q4hrs PRN anxiety/agitation/insomnia 4. Oxycodone SR 10 mg PO TID 5. Senna 1 tab PO qHS PRN constipation 6. Zolpidem 10 mg PO qHS PRN insomnia 7. Atropine 1% gtt SL q2hrs PRN excessive secretions 8. Moprhine 20mg/mL 5 mg PO q2hrs PRN pain or SOB 9. Cosopt 1 gtt both eyes BID 10. Sertraline 50 mg PO qPM 11. Alphagan 0.1% 1 gtt both eyes BID 12. Gabapentin 100 mg PO BID 13. Aspirin 81 mg PO daily 14. Metoprolol 50 mg PO BID 15. Nitro 0.4 mg SL q5 min PRN angina 16. Travatan 0.004% 1 gtt left eye daily 17. Oxycodone 5 mg PO q4hrs PRN pain Hospital Course: Please see admission note for full H&P, however briefly Mrs. Álvarez is well known to our service due to her recent diagnosis of extensive stage small cell lung cancer. She recently received second line IV Taxol and presented to the ER with progressive weakness. She was admitted for observation d/t dehydration from diarrhea. Due to her overall poor performance (and progression through first line therapy after only 2 doses) a palliative care consult was ordered. During her admission she also received PT and OT evaluations. Ultimately the patient and family decided to pursue comfort measures only. She will sign on to hospice services later this week and although the family is cautiously anxious regarding their ability to care for her at home they very much want her to go home and have stated feeling confident in their ability for the next several days. She will be discharged home today. Plan of care reviewed at length and all questions answered. >40 min spent with >50% face to face counseling
== END 2017-08-29 14:00 | disposition home or self-care (01) | DRG 181 ==
LOC: ED 04:01 → MED 09:36 → OBSVTOIN 14:00
PROVIDERS: ADMIT Internal Medicine; ATTEND Internal Medicine Hematology & Oncology
PROC: 30233N1 Transfusion of Nonautologous Red Blood Cells into Peripheral Vein, Percutaneous Approach (ICD-10-PCS; principal; 2017-08-26)
DX: C34.90 Malignant neoplasm of unspecified part of unspecified bronchus or lung (principal); C79.51 Secondary malignant neoplasm of bone; K52.1 Toxic gastroenteritis and colitis; G62.9 Polyneuropathy, unspecified; H35.30 Unspecified macular degeneration; Z79.1 Long term (current) use of non-steroidal anti-inflammatories (NSAID); Z79.82 Long term (current) use of aspirin; Z79.891 Long term (current) use of opiate analgesic; Z79.899 Other long term (current) drug therapy; I25.10 Atherosclerotic heart disease of native coronary artery without angina pectoris; Z95.5 Presence of coronary angioplasty implant and graft; N18.9 Chronic kidney disease, unspecified; F32.9 Major depressive disorder, single episode, unspecified; E78.5 Hyperlipidemia, unspecified; M19.90 Unspecified osteoarthritis, unspecified site; Z84.1 Family history of disorders of kidney and ureter; Z82.49 Family history of ischemic heart disease and other diseases of the circulatory system; Z66 Do not resuscitate; G47.00 Insomnia, unspecified; T45.1X5A Adverse effect of antineoplastic and immunosuppressive drugs, initial encounter; Y92.9 Unspecified place or not applicable; Z87.891 Personal history of nicotine dependence
CPT/HCPCS: 36415; 80053; 81003; 82150; 83605; 83690; 83735; 85025; 85610; 85730; 86078; 86850; 86900; 86901; 86922; 99219; 99232; 99239; A9270-GY; G8987-GO-CK; G8988-GO-CK; J1642; J1644; J2270; J2405; P9040